=== PATIENT | male | born 1960 | race Caucasian/White ===

== ENCOUNTER → 2021-11-22 | Outpatient (CLI) | payer BC ==
[2021-11-22 15:30] LABS: BASO # 0.1 x10^3/uL (0.0-0.2); BASO % 1 % (0-3); EOS # 0.1 x10^3/uL (0.0-0.7); EOS % 1 % (0-3); HEMATOCRIT 52.6 % (39.0-53.0); HEMOGLOBIN 17.4 g/dL (13.0-17.5); LYMPH # 2.2 x10^3/uL (1.0-4.8); LYMPH % 24 % (24-48); MEAN CORPUSCULAR HEMOGLOBIN 30 pg (25-35); MEAN CORPUSCULAR HGB CONC 33 g/dL (31-37); MEAN CORPUSCULAR VOLUME 90 fL (79-100); MONO # 0.7 x10^3/uL (0.0-1.1); MONO % 8 % (0-9); NEUT # 5.9 x10^3/uL (1.8-7.7); NEUT % 66 % (31-73); PLATELET COUNT 217 x10^3/uL (140-400); RED BLOOD COUNT 5.86 x10^6/uL (4.30-5.70); RED CELL DISTRIBUTION WIDTH 14.3 % (11.5-14.5)
[2021-11-22 15:39] LABS: PROTHROMBIN TIME PATIENT 13.1 SEC (11.7-14.0)
[2021-11-22 15:40] LABS: ALBUMIN 4.2 g/dL (3.4-5.0); CALCIUM 9.2 mg/dL (8.5-10.1); CREATININE 0.9 mg/dL (0.7-1.3); GFR 86.4; POTASSIUM 3.5 mmol/L (3.5-5.1)
--- NOTE | 2021-11-22 15:52 | EKG ---
[facility] [address] [place] [address] Test Date: 2021-11-22 Test Time: 15:39:42 Pat Name: OLE WAGONER Department: Room: Gender: Learning And Development Administrator: : [id number] Requested By: LOLY REID Order Number: [id number] Reading MD: Wei King Measurements Intervals [place] Rate: 89 P: 49 TX: 176 QRS: -46 QRSD: 100 T: 49 QT: 364 QTc: 444 Interpretive Statements SINUS RHYTHM MILD NON SPECIFIC ST CHANGES Electronically Signed On 11-23-2021 9:51:01 CDT by Wei King
--- NOTE | 2021-11-22 16:10 | RAD ---
EXAMINATION: XR CHEST 2V CLINICAL HISTORY: Preoperative clearance. EXAM DATE/TIME: 11/22/2021 3:42 PM COMPARISON: None FINDINGS: Lines, Tubes, and Devices: None. Cardiomediastinal Silhouette: Heart size at upper limits of normal. Lungs and Pleura: Mild left basilar subsegmental atelectasis and/or scarring. No evidence of pleural effusion. Pulmonary vasculature unremarkable. Bones and Soft Tissues: Degenerative changes in the thoracic spine. Cholecystectomy clips. IMPRESSION: No evidence of acute cardiopulmonary abnormality. Electronically signed by: Pepito Bustillo DO (11/22/2021 4:08 PM) [id number]
[2021-11-23 01:09] LABS: HEMOGLOBIN A1C 7.4 % (4.8-5.6)
== END ==
LOC: SURGPAT 14:46
PROVIDERS: ATTEND Orthopaedic Surgery
DX: Z01.818 Encounter for other preprocedural examination (principal); M16.12 Unilateral primary osteoarthritis, left hip; M47.814 Spondylosis without myelopathy or radiculopathy, thoracic region; Z90.49 Acquired absence of other specified parts of digestive tract
CPT/HCPCS: 36415; 71046; 80048; 82040; 82306; 83036; 85025; 85610; 85651; 85730; 87641; 93005

== ENCOUNTER 2021-12-14 06:09 | Observation (INO) | payer BC ==
[2021-11-22 15:50] VITALS: BP 124/74
[~2021-12-14] VITALS: Ht 172.7 cm; Wt 118.9 kg
[~2021-12-14 06:09] MED LIST: ACETAMINOPHEN 500 MG TABLET PO PRN; GABAPENTIN 300 MG CAPSULE. PO PRN; HYDROmorphone 2 MG/ML INJ. IVP PRN; IV RINGERS,LACTATED 1000ML 1,000 ML IV SCH; MELOXICAM 7.5 MG TABLET PO PRN; PROCHLORPERAZINE 10 MG/2 ML VIAL. IVP PRN; TRANEXAMIC ACID 1,000 MG in IV NS 50ML -- 1ST BAG INJ ONE; TV=62ml MORPHINE 5 MG, KETOROLAC 30 MG, ROPIV, EPI INT ART ONE; fentaNYL PF VIAL 100 MCG/2 ML VIAL IVP PRN
[2021-12-14] MEDS ORDERED: ATOR40TA59 PO (06:31)
[2021-12-14] MEDS ORDERED: ESCITALOPRAM OX10 MG PO (06:31)
[2021-12-14] MEDS ORDERED: METF10007 PO (06:31)
[2021-12-14] MEDS ORDERED: EMPA10TA3 PO (06:31)
[2021-12-14] MEDS ORDERED: LISI1TAB37 PO (06:31)
[2021-12-14 06:33] VITALS: BP 132/84
[2021-12-14] MEDS: INSULIN LISPRO 100 UNIT/ML 3ML VIAL for OP,RR ONLY. SQ PRN ×2 (06:55→13:01)
[2021-12-14] MEDS ORDERED: TRANEXAMIC ACID in NS IVPB 100 ML ONE (07:19)
[2021-12-14] MEDS ORDERED: TRANEXAMIC ACID 1,000 MG in IV NS 50ML -- 2ND BAG INJ ONE (08:00)
[2021-12-14] MEDS ORDERED: fentaNYL PF VIAL 100 MCG/2 ML VIAL ONE ×3 (10:34→13:12)
[2021-12-14] MEDS ORDERED: MIDAZOLAM HCL/PF 2 MG/2 ML VIAL. ONE (10:34)
[2021-12-14] MEDS ORDERED: KETAMINE HCL IN NACL, ISO-OSM 50 MG/5 ML SYRINGE ONE (10:55)
[2021-12-14] MEDS ORDERED: GLYCOPYRROLATE 1 MG/5 ML VIAL. ONE (10:55)
[2021-12-14] MEDS ORDERED: PHENYLEPHRINE in 0.9% NACL PF 1 MG/10 ML SYRINGE. IV ONE (11:17)
[2021-12-14] MEDS ORDERED: DEXTROSE 50% 25 GM / 50ML DISP.SYRIN. IV PRN (12:30)
[2021-12-14] MEDS ORDERED: 0.9 % SODIUM CHLORIDE 10 ML DISP.SYRIN. IV PRN (12:30)
[2021-12-14] MEDS ORDERED: CALCIUM CARBONATE 500 MG TAB.CHEW PO PRN (12:30)
[2021-12-14] MEDS ORDERED: IV DEXTROSE 5% 250 ML BAG. IV PRN (12:30)
--- NOTE | 2021-12-14 12:32 | PDOC4 ---
OPERATIVE NOTE Date: Date: Dec 14, 2021 Pre-Op Diagnosis: 1. 61 y/o M L hip osteoarthritis Post-Op Diagnosis: 1. 61 y/o M L hip osteoarthritis 2. s/p L ADEOLA Procedure Performed: 1. Left total hip arthroplasty Surgeon: Rolo Anesthesia Type: General Blood Loss: 150cc Specimans Obtained: Products of left total hip arthroplasty. Complications: Patient tolerated the procedure well without any apparent complications. Operative Note: See dictation. BEATRIZ CHANDLER Dec 14, 2021 12:32
--- NOTE | 2021-12-14 13:00 | OP ---
DATE OF SURGERY: 12/14/2021 PREOPERATIVE DIAGNOSIS: Severe degenerative joint disease, left hip. POSTOPERATIVE DIAGNOSIS: Severe degenerative joint disease, left hip. PROCEDURE: Left total hip arthroplasty. SURGEON: Hever Seth Jr, DO NAVIGATION OFFICER: LOBO [place] ANESTHESIA: General. COMPLICATIONS: None. ESTIMATED BLOOD LOSS: 250 mL. DESCRIPTION OF PROCEDURE: The patient was taken to the operative suite, given a general anesthetic, placed in lateral decubitus position. The left hip was then prepped and draped in a sterile fashion. Incision was made for an anterolateral incision to the hip through skin and subcutaneous tissues and subsequently through the iliotibial band in the same line. Superficial bleeding was coagulated using Bovie knife. This was retracted and the inferior aspect of the gluteus medius was removed. This was retracted anteriorly. The capsule was identified and opened up in an H fashion. After this was opened up, the head was then subsequently dislocated and 1 fingerbreadth above the lesser trochanter, a cut was made. This was noted to be very stable cut. The head was then measured and noted to be 52 mm, almost 53. The remainder of the labral tissue was then removed in its entirety and reaming began at size 48 up to 56 mm, which was noted to fill the acetabulum at that point. After filling the acetabulum, the actual implant was impacted and noted to be stable and secure. However, for further fixation, two 25 mm screws were placed appropriately into the acetabulum with excellent purchase and excellent fixation. The polyethylene was placed in appropriate position and noted to be in good position. This was a size F liner and this was impacted and noted to be stable and secured within the acetabular component. Attention was then directed to the femur. The box blank machine feeder opened up the femur. The IM guide was placed and then subsequently removed and then broaching began at size 0 continued up to size 5. Calcar reamer was used and then the trials were placed. This was a neutral 132-degree neck angle neutral length head was then affixed. This was then reduced and taken through full range and extremes in range of motion, noted to be very stable throughout the arc of motion. This was manually dislocated. All trial components were then removed. Irrigation was undertaken. This was suctioned dry. The femoral component was then placed followed by the femoral head. This was impacted and noted to be stable and secure. This was a ceramic head. This was then subsequently relocated manually into the acetabulum noted to be very secure throughout. Again, extremes in arc of motion, pistoning was 2-3 mm in maximum. This capsule was then reapproximated and then iodine was used to irrigate the entire area and this was subsequently irrigated with normal saline. After this was completely irrigated and then the gluteus medius was returned to its original position. The iliotibial band was then reapproximated. Superficial tissues and skin was reapproximated. Sterile dressing was applied. The patient was then taken from the operative bed to the postoperative bed, taken to the PACU in stable condition. HAILEE DR: Jerry TID: [id number]
[2021-12-14] MEDS ORDERED: MORPHINE SULFATE 2 MG/ML INJ. ONE (13:13)
[2021-12-14] MEDS: fentaNYL PF VIAL 100 MCG/2 ML VIAL IVP PRN ×2 (13:15→13:23)
[2021-12-14] MEDS: MORPHINE SULFATE 2 MG/ML INJ. IVP PRN ×2 (13:16→13:32)
[2021-12-14] MEDS ORDERED: MORPHINE SULFATE 2 MG/ML INJ. IVP PRN (14:00)
[2021-12-14 14:30] VITALS: BP 91/60
--- NOTE | 2021-12-14 14:30 | NUR ---
RECEIVED FROM RECOVERY. DROWSY BUT WILL ANSWER QUESTIONS APPROPRIATELY. HISTORY COMPLETED. HAS SLEEP APNEA --CPAP BROUGHT AND PLACED ON HIM INSTEAD OF OXYGEN. HE HAS GOOD PULSES, SENSATION AND MOTION IN LOWER EXTREMITIES DROWSY. DENIES PAIN.
[2021-12-14 15:00] VITALS: BP 102/69
[2021-12-14 15:30] VITALS: BP 103/64
--- NOTE | 2021-12-14 16:51 | RAD ---
EXAM: Frontal pelvis with two-view left hip. HISTORY: Arthroplasty. COMPARISON: None. FINDINGS: A left total hip arthroplasty is in expected alignment. The acetabular component is fixed b y 2 screws and the femoral component uncemented. No fractures are identified. Soft tissue gas is note d. There is moderately decreased femoral head/neck offset superolaterally on the right. The joint spaces of the right hip appear maintained. No fractures are appreciated within the pelvis. IMPRESSION: 1. Left total hip arthroplasty in expected alignment. 2. Correlate for femoroacetabular impingement on the right. Electronically signed by: Aishwarya Rascon MD (12/14/2021 4:49 PM) [id number]
--- NOTE | 2021-12-14 17:00 | NUR ---
up to the bathroom and voided a large amount. dressing on the lower end has a mod amount bloody drainage. reinforced at this time. became lightheaded and nauseated up in recliner. continues to be hypotensive. states he did not take his blood pressure med this am. Carolyn remains at bedside.
[2021-12-14] MEDS: ONDANSETRON ODT 4 MG TAB.RAPDIS. PO SCH (17:37)
[2021-12-14] MEDS: IV NORMAL SALINE 1000ML BAG 1,000 ML IV SCH ×2 (17:39→17:43)
[2021-12-14] MEDS: ONDANSETRON PF 4 MG/2 ML VIAL. IVP SCH (17:42)
--- NOTE | 2021-12-14 18:51 | NUR ---
up to the bathroom. had a large amount of bloody drainage. Melisa dressing saturated. has a hematoma on the top of incision. 15 4x4's and 2 abd's applied with tape to apply pressure. returned to bed. family at bedside.
[2021-12-14 19:00] VITALS: BP 104/63
[2021-12-14] MEDS: metFORMIN 500 MG TABLET PO SCH (20:26)
[2021-12-14 23:00] VITALS: BP 101/61
[2021-12-15 03:08] VITALS: BP 102/60
[2021-12-15] MEDS: ONDANSETRON ODT 4 MG TAB.RAPDIS. PO SCH ×3 (05:30→11:49)
[2021-12-15] MEDS: ONDANSETRON PF 4 MG/2 ML VIAL. IVP SCH ×2 (05:30)
[2021-12-15] MEDS ORDERED: MAGNESIUM HYDROXIDE 2,400 MG/30 ML ORAL.SUSP. PO PRN (06:00)
[2021-12-15] MEDS ORDERED: ENOXAPARIN 40 MG/0.4 ML SYRINGE. SQ SCH (06:00)
--- NOTE | 2021-12-15 06:57 | PDOC ---
PROGRESS NOTES Date of Service DATE: 12/15/21 TIME: 06:56 Subjective Subjective POD #1 s/p L ADEOLA Patient awake lying supine in bed. Reports improved conversational. Denies any complaints of pain to the left hip. Tolerating p.o. intake postoperatively. No nausea or vomiting overnight. Passing flatus this morning. 3500 on IS. No acute events overnight. Objective Vital Signs Vital Signs Date Time Temp Pulse Resp B/P (MAP) Pulse Ox O2 Delivery O2 Flow Rate FiO2 12/15/21 03:08 98.9 107 14 102/60 (74) 95 Room Air 98.9 12/14/21 13:32 6.0 Physical Exam Orthopedic examination left lower extremity: Skin is warm and dry. Surgical dressing intact over the lateral aspect the left hip. No drainage or discharge noted. Compartments are soft and compressible. EHL/FHL intact. Plantarflexion/dorsiflexion intact. Left lower extremity is warm and well- perfused. Sensation light touch intact throughout all dermatomes. Calf nontender. No pain with passive stretch. Negative Homans' sign. No evidence of thrombus. Labs Laboratory Tests Test 12/14/21 06:30 12/14/21 06:42 12/14/21 10:01 12/14/21 12:57 POC SARS CoV-2 Antigen Negative (NEGATIVE) Glucose (Fingerstick) 162 mg/dL (70-99) 160 mg/dL (70-99) 169 mg/dL (70-99) Test 12/14/21 16:46 12/14/21 20:38 Glucose (Fingerstick) 200 mg/dL (70-99) 234 mg/dL (70-99) Laboratory Tests Test 12/14/21 10:01 12/14/21 12:57 12/14/21 16:46 12/14/21 20:38 Glucose (Fingerstick) 160 mg/dL (70-99) 169 mg/dL (70-99) 200 mg/dL (70-99) 234 mg/dL (70-99) Imaging Plain film x-rays of the patient's left hip and pelvis performed postoperatively reviewed this morning. Orthopedic hardware in good alignment with no acute postoperative abnormalities noted. Assessment Assessment 61 y/o M L hip osteoarthritis s/p L ADEOLA 12/14 - Rolo * WBAT LLE * PT/OT for mobilization, gait training and fall prevention * Anterior lateral hip precautions to include no extension past neutral, no adduction past midline, no external rotation past neutral x6 weeks. * Recommend utilizing a walker to aid with ambulation and prevent falls * DVT ppx (Lovenox); ASA 325mg BID on discharge * Post-op abx (Cefazolin) * Maintain surgical dressings * ICE operative hip prn * Hgb this AM pending * Encourage use of IS while awake * CM for discharge planning; awaiting therapy recommendations post-operatively; will have patient work with therapy today. Anticipate discharge home later this afternoon. * Follow up with orthopedics in 2 weeks following discharge from the hospital. Call to schedule prior to discharge [phone]. Justicifation of Admission Dx: Justifications for Admission: Justification of Admission Dx: Yes BEATRIZ CHANDLER Dec 15, 2021 06:57
[2021-12-15 07:00] VITALS: BP 120/57
--- NOTE | 2021-12-15 07:23 | NUR ---
Patient slept well w/ Cpap on. Denies pain.
[2021-12-15] MEDS: ACETAMINOPHEN 500 MG TABLET PO SCH ×2 (08:56→15:28)
[2021-12-15] MEDS: metFORMIN 500 MG TABLET PO SCH ×2 (08:57→17:02)
[2021-12-15] MEDS: oxyCODONE IR 5 MG TABLET PO PRN ×2 (08:58→17:02)
[2021-12-15] MEDS ORDERED: SENNOSIDES/DOCUSATE 8.6/50MG TABLET. PO SCH (09:00)
[2021-12-15] MEDS ORDERED: EMPAGLIFLOZIN 10 MG TABLET. PO SCH (09:00)
[2021-12-15] MEDS ORDERED: CITALOPRAM 20 MG TABLET. PO SCH (09:00)
[2021-12-15 11:00] VITALS: BP 124/68
[2021-12-15 15:00] VITALS: BP 114/64
--- NOTE | 2021-12-15 15:55 | PDOC1 ---
History and Physical Date of Admission Date of Admission DATE: 12/15/21 TIME: 15:55 Identification/Chief Complaint Chief Complaint Left total hip arthroplasty Source Source: Patient History of Present Illness History of Present Illness Mr Lees is a 61yo male with PMHx HTN, DM2, HLD, and osteoarthritis of left hip who comes for elective hip replacement. He underwent uncomplicated left total hip arthroplasty on 12/14/2021 was already ambulating well passing flatus use incentive spirometer well he did have a small postop hematoma Holley dressing has been replaced. Hemoglobin 14 postoperatively. Glucose been in the 100s. HbA1c is 7.4 vitamin D is in the low 20s advised to take 5000 international units of vitamin D. Pain has been reasonably controlled on hydrocodone as needed. Past Medical History Cardiovascular: HTN Endocrine: Diabetes Past Surgical History Past Surgical History: Total hip replacement (Left total hip arthroplasty 12/14/[address] Hever Seth) Family History Family History: Diabetes, High Cholestrol, Hypertension Social History Smoke: No ALCOHOL: none Drugs: None Current Medications Current Medications Current Medications Fentanyl Citrate (Fentanyl 2ml Vial) 25 mcg PRN Q5MIN PRN IVP MILD PAIN 1-3; Start 12/14/21 at 06:00; Stop 12/14/21 at 16:00; Status DC Fentanyl Citrate (Fentanyl 2ml Vial) 50 mcg PRN Q5MIN PRN IVP MODERATE PAIN 4-6 Last administered on 12/14/21at 13:23; Start 12/14/21 at 06:00; Stop 12/14/21 at 16:00; Status DC Morphine Sulfate (Morphine Sulfate) 1 mg PRN Q10MIN PRN IVP SEVERE PAIN 7-10 Last administered on 12/14/21at 13:32; Start 12/14/21 at 06:00; Stop 12/14/21 at 16:00; Status DC Ringer's Solution 1,000 ml @ 30 mls/hr Q24H IV Last administered on 12/14/21at 06:51; Start 12/14/21 at 06:00; Stop 12/14/21 at 17:59; Status DC Hydromorphone HCl (Dilaudid) 0.5 mg PRN Q10MIN PRN IVP SEVERE PAIN 7-10, 2nd CHOICE; Start 12/14/21 at 06:00; Stop 12/14/21 at 16:00; Status DC Prochlorperazine Edisylate (Compazine) 5 mg PACU PRN PRN IVP NAUSEA, MRX1; Sta rt 12/14/21 at 06:00; Stop 12/14/21 at 16:00; Status DC Meloxicam (Mobic) 15 mg 1X PREOP PRN PO PRIOR TO PROCEDURE Last administered on 12/14/21at 06:49; Start 12/14/21 at 06:00; Stop 12/14/21 at 12:48; Status DC Gabapentin (Neurontin) 600 mg 1X PREOP PRN PO PRIOR TO PROCEDURE Last administered on 12/14/21at 06:49; Start 12/14/21 at 06:00; Stop 12/14/21 at 12:45; Status DC Acetaminophen (Tylenol) 1,000 mg 1X PREOP PRN PO PRIOR TO PROCEDURE Last administered on 12/14/21at 06:51; Start 12/14/21 at 06:00; Stop 12/14/21 at 12:44; Status DC Cefazolin Sodium/ Dextrose 50 ml @ 100 mls/hr 1X PREOP PRN IV PRIOR TO PROCEDURE; Start 12/14/21 at 06:00; Stop 12/14/21 at 12:43; Status DC Tranexamic Acid 50 ml @ 50 mls/hr 1X PERIOP ONCE INJ Last administered on 11/19 03/10at 11:56; Start 12/14/21 at 06:00; Stop 12/14/21 at 06:59; Status DC Tranexamic Acid 50 ml @ 50 mls/hr 1X PERIOP ONCE INJ ; Start 12/14/21 at 08:00; Stop 12/14/21 at 08:59; Status DC Morphine Sulfate 5 mg/Ketorolac Tromethamine 30 mg/Ropivacaine 60 ml/Epinephrine HCl 0.5 mg/ Miscellaneous 63 ml @ 63 mls/hr 1X PERIOP ONCE INT ART Last administered on 12/14/21at 11:56; Start 12/14/21 at 06:00; Stop 12/14/21 at 06:59; Status DC Insulin Human Lispro (HumaLOG VIAL for OP,RR ONLY) 0-10 units PRN Q1HR PRN SQ PER PROTOCOL Last administered on 12/14/21at 13:01; Start 12/14/21 at 07:00; Stop 12/14/21 at 16:00; Status DC Tranexamic Acid 100 ml @ As Directed STK-MED ONCE .ROUTE ; Start 12/14/21 at 07:19; Stop 12/14/21 at 07:20; Status DC Fentanyl Citrate (Fentanyl 2ml Vial) 100 mcg STK-MED ONCE .ROUTE ; Start 12/14/21 at 10:34; Stop 12/14/21 at 10:34; Status DC Midazolam HCl (Versed) 2 mg STK-MED ONCE .ROUTE ; Start 12/14/21 at 10:34; Stop 12/14/21 at 10:34; Status DC Ketamine HCl (Ketamine) 50 mg STK-MED ONCE .ROUTE ; Start 12/14/21 at 10:55; Stop 12/14/21 at 10:55; Status DC Glycopyrrolate (Robinul) 1 mg STK-MED ONCE .ROUTE ; Start 12/14/21 at 10:55; Stop 12/14/21 at 10:55; Status DC Phenylephrine HCl (PHENYLEPHRINE in 0.9% NACL PF) 1 mg STK-MED ONCE IV ; Start 12/14/21 at 11:17; Stop 12/14/21 at 11:17; Status DC Fentanyl Citrate (Fentanyl 2ml Vial) 100 mcg STK-MED ONCE .ROUTE ; Start 12/14/21 at 12:13; Stop 12/14/21 at 12:13; Status DC Morphine Sulfate (Morphine Sulfate) 2 mg PRN Q1HR PRN IVP PAIN; Start 12/14/21 at 14:00 Senna/Docusate Sodium (Senna Plus) 1 tab DAILY PO Last administered on 12/15/21at 08:56; Start 12/15/21 at 09:00 Sodium Chloride 1,000 ml @ 40 mls/hr Q24H IV Last administered on 12/14/21at 17:39; Start 12/14/21 at 14:00 Magnesium Hydroxide (Milk Of Magnesia) 2,400 mg 1X PRN PRN PO CONSTIPATION; Start 12/15/21 at 06:00; Stop 12/16/21 at 05:59 Bisacodyl (Dulcolax Supp) 10 mg 1X PRN PRN VA CONSTIPATION; Start 12/15/21 at 16:00; Stop 12/16/21 at 15:59 Calcium Carbonate/ Glycine (Tums) 500 mg PRN QID PRN PO INDIGESTION; Start 12/14/21 at 12:30 Sodium Chloride (Normal Saline Flush) 10 ml QSHIFT PRN IV AFTER MEDS AND BLOOD DRAWS; Start 12/14/21 at 12:30 Acetaminophen (Tylenol) 1,000 mg Q6H PO Last administered on 12/15/21at 15:28; Start 12/15/21 at 09:00 Ondansetron HCl (Zofran) 4 mg Q6HRS IVP ; Start 12/14/21 at 18:00; Stop 12/15/21 at 11:54; Status DC Ondansetron HCl (Zofran Odt) 4 mg Q6HRS PO Last administered on 12/15/21at 11:49; Start 12/14/21 at 18:00; Stop 12/15/21 at 11:54; Status DC Oxycodone HCl (Roxicodone) 5 mg PRN Q4HRS PRN PO Pain score 4-6 Last administered on 12/15/21at 08:58; Start 12/14/21 at 12:30 Dextrose (Dextrose 50%-Water Syringe) 12.5 gm PRN Q15MIN PRN IV SEE COMMENTS; Start 12/14/21 at 12:30 Dextrose (Iv Dextrose 5%) 250 ml PRN Q15MIN PRN IV SEE COMMENTS; Start 12/14/21 at 12:30 Cefazolin Sodium/ Dextrose 50 ml @ 100 mls/hr Q6H IV Last administered on 12/15/21at 02:00; Start 12/14/21 at 14:00; Stop 12/15/21 at 02:29; Status DC Enoxaparin Sodium (Lovenox 40mg Syringe) 40 mg Q24H SQ ; Start 12/15/21 at 06:00 Fentanyl Citrate (Fentanyl 2ml Vial) 100 mcg STK-MED ONCE .ROUTE ; Start 2 at 13:12; Stop 12/14/21 at 13:13; Status DC Morphine Sulfate (Morphine Sulfate) 2 mg STK-MED ONCE .ROUTE ; Start 12/14/21 at 13:13; Stop 12/14/21 at 13:13; Status DC Empaglifozin (Jardiance) 10 mg DAILY PO Last administered on 12/15/21at 08:57; Start 12/15/21 at 09:00 Citalopram Hydrobromide (CeleXA) 20 mg DAILY PO Last administered on 12/15/21at 08:57; Start 12/15/21 at 09:00 Metformin HCl (Glucophage) 1,000 mg BIDWMEALS PO Last administered on 12/15/21at 08:57; Start 12/14/21 at 19:30 Active Scripts Active Reported Escitalopram Oxalate 10 Mg Tablet 10 Mg PO DAILY Lisinopril-Hctz 20-12.5 Mg Tab (Lisinopril/Hydrochlorothiazide) 1 Each Tablet 1 Tab PO DAILY Metformin Hcl 1,000 Mg Tablet 1,000 Mg PO BIDWMEALS Atorvastatin Calcium 40 Mg Tablet 40 Mg PO HS Jardiance (Empaglifozin) 10 Mg Tablet 10 Mg PO DAILY Allergies Allergies: Coded Allergies: No Known Drug Allergies (Unverified , 12/14/21) ROS General: No: Chills, Night Sweats, Fatigue, Malaise, Appetite, Other PSYCHOLOGICAL ROS: No: Anxiety, Behavioral Disorder, Concentration difficultie, Decreased libido, Depression, Disorientation, Hallucinations, Hostility, Irritablity, Memory difficulties, Mood Swings, Obsessive thoughts, Physical abuse, Sexual abuse, Sleep disturbances, Suicidal ideation, Other Eyes: No Blurry vision, No Decreased vision, No Double vision, No Dry eyes, No Excessive tearing, No Eye Pain, No Itchy Eyes, No Loss of vision, No Photophobia, No Scotomata, No Uses contacts, No Uses glasses, No Other HEENT: No: Heacaches, Visual Changes, Hearing change, Nasal congestion, Nasal discharge, Oral lesions, Sinus pain, Sore Throat, Epistaxis, Sneezing, Snoring, Tinnitus, Vertigo, Vocal changes, Other ALLERGY AND IMMUNOLOGY: No: Hives, Insect Bite Sensitivity, Itchy/Watery Eyes, Nasal Congestion, Post Nasal Drip, Seasonal Allergies, Other Hematological and Lymphatic: No: Bleeding Problems, Blood Clots, Blood Transfusions, Brusing, Night Sweats, Pallor, Swollen Lymph Nodes, Other ENDOCRINE: No: Breast Changes, Galactorrhea, Hair Pattern Changes, Hot Flashes, Malaise/lethargy, Mood Swings, Palpitations, Polydipsia/polyuria, Skin Changes, Temperature Intolerance, Unexpected Weight Changes, Other Breast: No New/Changing Breast Lumps, No Nipple changes, No Nipple discharge, No Other Respiratory: No: Cough, Hemoptysis, Orthopnea, Pleuritic Pain, Shortness of breath, SOB with excertion, Sputum Changes, Stridor, Tachypnea, Wheezing, Other Cardiovascular: No Chest Pain, No Palpitations, No Orthopnea, No Paroxysmal Noc. Dyspnea, No Edema, No Lt Headedness, No Other Gastrointestinal: No Nausea, No Vomiting, No Abdominal Pain, No Diarrhea, No Constipation, No Melena, No Hematochezia, No Other Genitourinary: No Dysuria, No Frequency, No Incontinence, No Hematuria, No Retention, No Discharge, No Urgency, No Pain, No Flank Pain, No Other, No , No , No , No , No , No , No Musculoskeletal: Yes Joint Pain, Yes Joint Stiffness; No Gait Disturbance, No Joint Swelling, No Muscle Pain, No Muscular Weakness, No Pain In:, No Swelling In:, No Other Neurological: No Behavorial Changes, No Bowel/Bladder ControlChng, No Confusion, No Dizziness, No Gait Disturbance, No Headaches, No Impaired Coord/balance, No Memory Loss, No Numbness/Tingling, No Seizures, No Speech Problems, No Tremors, No Visual Changes, No Weakness, No Other Skin: No Dry Skin, No Eczema, No Hair Changes, No Lumps, No Mole Changes, No Mottling, No Nail Changes, No Pruritus, No Rash, No Skin Lesion Changes, No Other, No Acne Physical Exam General: Alert, Oriented X3, Cooperative, No acute distress HEENT: Atraumatic, PERRLA, EOMI, Mucous membr. moist/pink Lungs: Clear to auscultation, Normal air movement Heart: S1S2, RRR, no thrills, no rubs, no gallops, no murmurs Extremities: No clubbing, No cyanosis, No edema, Normal pulses, Other (Left hip a little tender dressing in place mildly saturated changed with no saturation.) Skin: No rashes, No breakdown, No significant lesion Neuro: Normal gait, Normal speech, Strength at 5/5 X4 ext, Normal tone, Sensation intact, Cranial nerves 3-12 NL, Reflexes 2+ Vitals Vitals Vital Signs Date Time Temp Pulse Resp B/P (MAP) Pulse Ox O2 Delivery O2 Flow Rate FiO2 12/15/21 15:00 98.0 68 18 114/64 (81) 97 Room Air 98.0 12/14/21 13:32 6.0 Labs Labs Laboratory Tests Test 12/14/21 06:30 12/14/21 06:42 12/14/21 10:01 12/14/21 12:57 POC SARS CoV-2 Antigen Negative (NEGATIVE) Glucose (Fingerstick) 162 mg/dL (70-99) 160 mg/dL (70-99) 169 mg/dL (70-99) Test 12/14/21 16:46 12/14/21 20:38 12/15/21 07:40 12/15/21 08:20 Glucose (Fingerstick) 200 mg/dL (70-99) 234 mg/dL (70-99) 175 mg/dL (70-99) Hemoglobin 14.3 g/dL (13.0-17.5) Test 12/15/21 11:35 Glucose (Fingerstick) 153 mg/dL (70-99) Laboratory Tests Test 12/14/21 16:46 12/14/21 20:38 12/15/21 07:40 12/15/21 08:20 Glucose (Fingerstick) 200 mg/dL (70-99) 234 mg/dL (70-99) 175 mg/dL (70-99) Hemoglobin 14.3 g/dL (13.0-17.5) Test 12/15/21 11:35 Glucose (Fingerstick) 153 mg/dL (70-99) Images Images HIP LEFT 1 VIEW WITH PELVIS EXAM: Frontal pelvis with two-view left hip. HISTORY: Arthroplasty. COMPARISON: None. FINDINGS: A left total hip arthroplasty is in expected alignment. The acetabular component is fixed by 2 screws and the femoral component uncemented. No fractures are identified. Soft tissue gas is noted. There is moderately decreased femoral head/neck offset superolaterally on the right. The joint spaces of the right hip appear maintained. No fractures are appreciated within the pelvis. IMPRESSION: 1. Left total hip arthroplasty in expected alignment. 2. Correlate for femoroacetabular impingement on the right. VTE Prophylaxis Ordered VTE Prophylaxis Devices: Yes VTE Pharmacological Prophylaxi: Yes Assessment/Plan Assessment/Plan Left hip osteoarthritis -status post left total hip arthroplasty on 12/14/2021. Pain control with hydrocodone outpatient we will like for home PT and OT. His is a nurse will help with his pain control and ambulation. Given 2.5 mg Eliquis twice daily for 35 days for thromboprophylaxis he is considering whether to do this or aspirin 325 mg twice daily I have advised him not to do both. DM2 -Jardiance and metformin therapy outpatient good increase Jardiance to 25 mg daily HTN -continue home lisinopril HCTZ Vitamin D insufficiency -5000 international units daily recommended Obesity -counseled lifestyle modification. FEN - ADA diet PPX - lovenox --> eliquis FULL CODE Dispo - discharge home with home health Justifications for Admission Other Justification NAEEM WALLACE MD Dec 15, 2021 15:55
--- NOTE | 2021-12-15 15:59 | SNU/HH DC ---
DISCHARGE WITH HOME HEALTH DISCHARGE INFORMATION: Discharge Date: Dec 15, 2021 Final Diagnosis: Left hip osteoarthritis s/p left ADEOLA Condition on Discharge: Stable CODE STATUS: Code Status: Full HOME HEALTH: Face to Face: I certify this patient is under my care and that I, or a nurse practitioner or physician's teaching assistant working with me, had a face to face encounter that meets the physician face to face encounter requirements with this patient on 12/15/2021. Medical Complications: DJD, S/P Joint Replacement Snf For: Assess/Skilled Observatio, Bowel/Bladder Training, Medication Management, Pain Management RN For Eval/Treatment: Yes Physical Therapy For: Evalulation/Treatment Occupational Therapy For: Evaluation/Treatment Pt Meets Homebound Status: Limited distance walking POST DISCHARGE ORDERS: Activity Instructions for Disc: Resume previous activity Weight Bearing Status after Di: Full weight bearing DIET AFTER DISCHARGE: ADA FOLLOW-UP: Additional Instructions: [facility] Orth[facility] surgery - Dr. Hever Seth [address] [facility], [address] [place] [address] P: CERTIFICATION STATEMENT: Certification Statement: Certification Statement: Based on the above finding, I certify that this patient is confined to the home and needs intermittent prison care, physical therapy and/or speech therapy, or continues to need occupational therapy.~ This patient is under my care, and I have initiated the establishment of the plan of care.~ This patient will be followed by myself or a community physician who will periodically review the plan of care. Home Meds Active Scripts Apixaban (ELIQUIS) 2.5 Mg Tablet, 2.5 MG PO BID for Hip replacement for 35 Days, #70 TAB 0 Refills Prov:NAEEM WALLACE MD 12/15/21 Hydrocodone/Acetaminophen (Hydrocodone-Acetamin 5-325 mg) 1 Each Tablet, 1 EACH PO PRN Q6HRS PRN for PAIN, #20 TAB 0 Refills Prov:BEATRIZ CHANDLER 12/15/21 Aspirin (ASPIRIN) 325 Mg Tablet, 1 TAB PO BID for DVT PPX, #60 TAB 5 Refills Prov:BEATRIZ CHANDLER 12/15/21 Reported Medications Escitalopram Oxalate (ESCITALOPRAM OXALATE) 10 Mg Tablet, 10 MG PO DAILY for ANTI-DEPRESSANT, #30 TAB 0 Refills 12/14/21 Lisinopril/Hydrochlorothiazide (LISINOPRIL-HCTZ 20-12.5 MG TAB) 1 Each Tablet, 1 TAB PO DAILY for , #30 TAB 5 Refills 12/14/21 Metformin Hcl (METFORMIN HCL) 1,000 Mg Tablet, 1000 MG PO BIDWMEALS for , TAB 12/14/21 Atorvastatin Calcium (ATORVASTATIN CALCIUM) 40 Mg Tablet, 40 MG PO HS for FOR CHOLESTEROL, #30 TAB 0 Refills 12/14/21 Empagliflozin (Jardiance) 10 Mg Tablet, 10 MG PO DAILY for Type 2 diabetes, TAB 12/14/21 NAEEM WALLACE MD Dec 15, 2021 15:59
[2021-12-15] MEDS ORDERED: BISACODYL 10 MG SUPP.RECT. PR PRN (16:00)
[2021-12-15] MEDS ORDERED: ASPI325T8 PO (16:15)
--- NOTE | 2021-12-15 16:18 | DISCH ---
DISCHARGE INSTRUCTIONS Condition on Discharge Condition on Discharge: Stable Activity After Discharge Activity Instructions for Disc: Resume previous activity, Activity as tolerated Other activity instructions: WBAT LLE. Anterior lateral hip precautions x6 weeks post-op. Lifting Instructions after Dis: No heavy lifting Exercise Instruction after Dis: Walk 10 min, 3 x per day Driving Instructions after Dis: Other, see below (No driving while taking oral narcotic pain meds) Weight Bearing Status after Di: Full weight bearing Diet after Discharge Diet after Discharge: Regular Wound Incision Care Wound/Incision Care: Ice to area for comfort, Keep wound/cast CDI, Do not change dressing (Dressing to be changed at first follow up appointment) Community/Resources/Services Services at Discharge: Home Health Care Services Contacting the DR. after DC Call your doctor for: Fever greater than 100 BEATRIZ CHANDLER Dec 15, 2021 16:18
[2021-12-15] MEDS ORDERED: HYDR-2759 PO (16:20)
[2021-12-15] MEDS ORDERED: APIX2.5T PO (16:55)
--- NOTE | 2021-12-15 17:06 | PDOC3 ---
Discharge Summary Visit Information Date of Admission: Dec 14, 2021 Date of Discharge: Dec 15, 2021 Admitting Diagnosis: Left hip osteoarthritis Final Diagnosis Left hip osteoarthritis Brief Hospital Course Allergies Allergies Coded Allergies Type Severity Reaction Last Updated Verified No Known Drug Allergies 12/14/21 No Vital Signs Vital Signs Date Time Temp Pulse Resp B/P (MAP) Pulse Ox O2 Delivery O2 Flow Rate FiO2 12/15/21 15:00 98.0 68 18 114/64 (81) 97 Room Air 98.0 12/14/21 13:32 6.0 Lab Results Laboratory Tests Test 12/14/21 06:30 12/14/21 06:42 12/14/21 10:01 12/14/21 12:57 POC SARS CoV-2 Antigen Negative (NEGATIVE) Glucose (Fingerstick) 162 mg/dL (70-99) 160 mg/dL (70-99) 169 mg/dL (70-99) Test 12/14/21 16:46 12/14/21 20:38 12/15/21 07:40 12/15/21 08:20 Glucose (Fingerstick) 200 mg/dL (70-99) 234 mg/dL (70-99) 175 mg/dL (70-99) Hemoglobin 14.3 g/dL (13.0-17.5) Test 12/15/21 11:35 12/15/21 16:54 Glucose (Fingerstick) 153 mg/dL (70-99) 120 mg/dL (70-99) Laboratory Tests Test 12/14/21 20:38 12/15/21 07:40 12/15/21 08:20 12/15/21 11:35 Glucose (Fingerstick) 234 mg/dL (70-99) 175 mg/dL (70-99) 153 mg/dL (70-99) Hemoglobin 14.3 g/dL (13.0-17.5) Test 12/15/21 16:54 Glucose (Fingerstick) 120 mg/dL (70-99) Brief Hospital Course Mr Lees is a 61yo male with PMHx HTN, DM2, HLD, and osteoarthritis of left hip who comes for elective hip replacement. He underwent uncomplicated left total hip arthroplasty on 12/14/2021 was already ambulating well passing flatus use incentive spirometer well he did have a small postop hematoma Holley dressing has been replaced. Hemoglobin 14 postoperatively. Glucose been in the 100s. HbA1c is 7.4 vitamin D is in the low 20s advised to take 5000 international units of vitamin D. Pain has been reasonably controlled on hydrocodone as needed. Problem list: Left hip osteoarthritis -status post left total hip arthroplasty on 12/14/2021. Pain control with hydrocodone outpatient we will like for home PT and OT. His is a nurse will help with his pain control and ambulation. Given 2.5 mg Eliquis twice daily for 35 days for thromboprophylaxis he is considering whether to do this or aspirin 325 mg twice daily I have advised him not to do both. DM2 -Jardiance and metformin therapy outpatient good increase Jardiance to 25 mg daily HTN -continue home lisinopril HCTZ Vitamin D insufficiency -5000 international units daily recommended Obesity -counseled lifestyle modification. FEN - ADA diet PPX - lovenox --> eliquis FULL CODE Dispo - discharge home with home health Greater than 30 minutes spent on discharge home with home health Discharge Information Condition at Discharge: Improved Follow Up: Weeks (1) Disposition/Orders: D/C to Home w/ HH Scheduled Apixaban (Eliquis) 2.5 Mg Tablet, 2.5 MG PO BID for Hip replacement for 35 Days, #70 Ref 0 Prescribed by: NAEEM WALLACE MD on 12/15/21 1655 Aspirin (Aspirin) 325 Mg Tablet, 1 TAB PO BID for DVT PPX, #60 Ref 5 Prescribed by: BEATRIZ MANZANO PA-C on 12/15/21 1615 Atorvastatin Calcium (Atorvastatin Calcium) 40 Mg Tablet, 40 MG PO HS for FOR CHOLESTEROL, #30 Ref 0 (Reported) Entered as Reported by: Sonia Ramirez on 12/14/21630 Last Taken: 40 on Unknown Date & Time Last Action: New Order on 12/14/21630 by Sonia Ramirez Empagliflozin (Jardiance) 10 Mg Tablet, 10 MG PO DAILY for Type 2 diabetes, (Reported) Entered as Reported by: Sonia Ramirez on 12/14/21630 Last Taken: 10 on Unknown Date & Time Last Action: Continued on 12/14/211904 by CARMELITA BERMEO Escitalopram Oxalate (Escitalopram Oxalate) 10 Mg Tablet, 10 MG PO DAILY for ANTI-DEPRESSANT, #30 Ref 0 (Reported) Entered as Reported by: Sonia Ramirez on 12/14/21630 Last Taken: 10 on Unknown Date & Time Last Action: Converted on 12/14/211904 by CARMELITA BERMEO Lisinopril/Hydrochlorothiazide (Lisinopril-Hctz 20-12.5 Mg Tab) 1 Each Tablet, 1 TAB PO DAILY for , #30 Ref 5 (Reported) Entered as Reported by: Sonia Ramirez on 12/14/21630 Last Taken: 12.5 on Unknown Date & Time Last Action: New Order on 12/14/21630 by Sonia Ramirez Metformin Hcl (Metformin Hcl) 1,000 Mg Tablet, 1,000 MG PO BIDWMEALS for , (Reported) Entered as Reported by: Sonia Ramirez on 12/14/21630 Last Taken: 1,000 on Unknown Date & Time Last Action: Converted on 12/14/211904 by CARMELITA BERMEO Scheduled PRN Hydrocodone/Acetaminophen (Hydrocodone-Acetamin 5-325 mg) 1 Each Tablet, 1 EACH PO PRN Q6HRS PRN for PAIN, #20 Ref 0 Prescribed by: BEATRIZ MANZANO PA-C on 12/15/21 1620 Justicifation of Admission Dx: Justifications for Admission: Justification of Admission Dx: Yes NAEEM WALLACE MD Dec 15, 2021 17:06
--- NOTE | 2021-12-15 17:52 | NUR ---
0434 patient discharged to home with family and home health. taken out by wheelchair. hip dressing changed to estela dressing before leaving.
--- NOTE | 2021-12-20 18:07 | PATHOLOGY ---
[facility] Accession Number: [id number] . 01 Material submitted: . femur - LEFT FEMORAL HEAD . 01 Clinical history: . L HIP PAIN L TOTAL HIP . 02 Diagnosis: Femoral head, left total hip arthroplasty: - Advanced degenerative arthritis. (JPM:cezar; 12/20/2021) QMS 12/20/2021 0931 Local . 02 Electronically signed: . Jeronimo Perez MD, Pathologist NPI- [id number] . 01 Gross description: . Received in formalin labeled "Gwyn Lees Jr., left femoral head" is a femoral head measuring 5.5 x 5.5 x 4.7 cm with an attached portion of femoral neck measuring 4.7 x 3.7 x 1.8 cm. The distal bone margin is smooth and consistent with a surgical margin. The articular surface displays diffuse roughening and eburnation covering 75% of the surfaces. Peripheral osteophytes are present. Materials Development Engineer sections of the articular surface are submitted in cassettes A1-A2 following decalcification. ([facility]; 12/15/2021) [facility] 12/15/2021 1350 Local . 02 Pathologist provided ICD-10: M16.12 . 02 CPT . 232065, [id number] Specimen Comment: A courtesy copy of this report has been sent to [phone] Specimen Comment: Report sent to Performed at: 01 [facility] [address] [id number] MD Wes Briseno MD Phone: [phone] Performed at: [address] [facility] [address] [place], [place] [id number] MD Jeronimo Perez MD Phone: [phone]
== END 2021-12-15 16:54 | disposition home health service (06) ==
LOC: SURG 06:09 → EDUNIT# 07:30 → INTOOBSV 12:23 → 4 NORTH 12:23
PROVIDERS: ADMIT Orthopaedic Surgery; ATTEND Orthopaedic Surgery
DX: M16.12 Unilateral primary osteoarthritis, left hip (principal); Z20.822 Contact with and (suspected) exposure to COVID-19; I10 Essential (primary) hypertension; E11.9 Type 2 diabetes mellitus without complications; E78.5 Hyperlipidemia, unspecified; E55.9 Vitamin D deficiency, unspecified; E78.00 Pure hypercholesterolemia, unspecified; Z79.899 Other long term (current) drug therapy; Z98.890 Other specified postprocedural states; Z79.4 Long term (current) use of insulin
CPT/HCPCS: 27130; 36415; 73501; 82962; 85018; 86850; 86900; 86901; 88304; 88311; 96365; 96366; 97110; 97116; 97162; 97165; 97530; 97535; A4213; A4930; A6253; A6258; A6550; C1776; G0378; G0379; J0171; J0690; J1885; J2250; J2270; J2370; J2795; J3010; J3490; J7030